=== PATIENT | female | born 2000 | race Hispanic/Latino ===

== ENCOUNTER 2021-12-09 17:56 | Emergency (ER) | payer OTHER ==
[2021-12-09 19:04] LABS: Urine Blood Negative (Negative); Urine Glucose Negative (Negative); Urine Protein Negative (Negative); Urine Specific Gravity 1.025 (1.005-1.030); Urine pH 6.5 (5.0-7.0)
[2021-12-09 19:19] LABS: Urine Specific Gravity/Preg 1.025 (1.005-1.030)
--- NOTE | 2021-12-09 19:50 | RAD REPORT ---
[facility] DES[facility] - [facility]09/2021 7:37 pm CLINICAL HISTORY: Flank pain, kidney stone suspected COMPARISON: <Comparisons> TECHNIQUE: CT of the abdomen and pelvis was performed. All CT scans are performed using dose optimization technique as appropriate and may include automated exposure control or mA/KV adjustment according to patient size. FINDINGS: Lower chest: No acute abnormality. Liver: No acute abnormality or suspicious lesions. Biliary: No biliary ductal dilatation. Stomach: No significant focal abnormality. Duodenum: No significant focal abnormality. Pancreas: No significant abnormality. Spleen: No significant abnormality. Adrenal: No suspicious lesions. Kidney/ureter: No hydronephrosis. No renal calculi. Retroperitoneum: No retroperitoneal adenopathy. Vascular: No aneurysm. Bowel: No significant focal abnormality. Normal appendix. Peritoneum: No ascites or free air. Bladder: Grossly unremarkable. Reproductive: No adnexal masses. Retroverted uterus. Bones: No acute fracture. Other: n/a IMPRESSION: No acute intra-abdominal or pelvic finding. No urinary tract calculi. Normal appendix.
[2021-12-09] MEDS ORDERED: MORPHINE 4 MG/ML SYR ONE (20:11)
[2021-12-09] MEDS ORDERED: NA CHLORIDE 0.9% 1,000 ML ONE (20:11)
[2021-12-09] MEDS ORDERED: ONDANSETRON 4 MG/2 ML VIAL ONE (20:11)
[2021-12-09 20:14] LABS: Absolute Lymphocytes (CBC) 2.8 K/uL (0.7-4.9); Hematocrit 41.9 % (36.0-45.0); Lymphocytes % 40.9 % (15.3-44.8); MCV 95.7 fL (80-100); MPV 8.6 fL (7.6-11.3); RBC Red Blood Cell Count 4.38 M/uL (3.86-4.86)
[2021-12-09 20:23] LABS: Albumin 3.5 g/dL (3.4-5.0); Bilirubin Total 0.3 mg/dL (0.2-1.0); Potassium 3.8 mmol/L (3.5-5.1); Protein, Total 7.2 g/dL (6.4-8.2)
[2021-12-09 21:40] LABS: Urine Bacteria <20 /HPF (<20); Urine RBC <5 /HPF (None Seen)
--- NOTE | 2021-12-09 22:14 | EDPHYS ---
Physician Documentation [facility] Name: Ling Bergman Age: 21 yrs Sex: Female : 2000 Arrival Date: 12/09/2021 Time: 18:31 Bed 14 Private MD: ED Physician Ezequiel Bergman HPI: 12/09 18:52 This 21 yrs old Female presents to ER via Ambulatory with complaints of pm1 Possible Kidney Stone. 18:52 The patient complains of pain in the left low back and right low back. The pain does pm1 not radiate. Onset: The symptoms/episode began/occurred yesterday. Modifying factors: The symptoms are alleviated by nothing. the symptoms are aggravated by movement. Associated signs and symptoms: Pertinent negatives: dizziness, dysuria, fever, headache, nausea, vomiting. Severity of pain: in the emergency department the pain is actually worse. The patient has experienced a previous episode, symptoms similar to prior UTI and possible kidney stone. The patient has not recently seen a physician. Historical: - Allergies: 18:33 PENICILLINS; ll1 - PMHx: 18:33 Kidney stone; ll1 - PSHx: 18:33 tympanoplasty; bunion removed; ll1 - Immunization history:: Client reports having NOT received the Covid vaccine. - Social history:: Smoking status: Patient denies any tobacco usage or history of. ROS: 18:52 Constitutional: Negative for fever, chills, and weight loss, Cardiovascular: Negative pm1 for chest pain, palpitations, and edema, Respiratory: Negative for shortness of breath, cough, wheezing, and pleuritic chest pain, Abdomen/GI: Negative for abdominal pain, nausea, vomiting, diarrhea, and constipation. 18:52 MS/Extremity: Negative for injury and deformity, Skin: Negative for injury, rash, and discoloration, Neuro: Negative for headache, weakness, numbness, tingling, and seizure. 18:52 Back: Positive for of the low back area. 18:52 All other systems are negative. Exam: 18:52 Constitutional: This is a well developed, well nourished patient who is awake, alert, pm1 and in no acute distress. Head/Face: Normocephalic, atraumatic. 18:52 Skin: Warm, dry with normal turgor. Normal color with no rashes, no lesions, and no evidence of cellulitis. MS/ Extremity: Pulses equal, no cyanosis. Neurovascular intact. Full, normal range of motion. 18:52 Cardiovascular: Exam negative for acute changes, Rate: normal, Rhythm: regular, Pulses: no pulse deficits are appreciated. 18:52 Respiratory: Exam negative for acute changes, respiratory distress, shortness of breath, Breath sounds: are clear throughout. 18:52 Abdomen/GI: Exam negative for acute changes, Inspection: abdomen appears normal, Palpation: abdomen is soft and non-tender, in all quadrants. 18:52 Back: pain, that is mild, of the right low back, CVA tenderness, is absent. 18:52 Neuro: Exam negative for acute changes, Orientation: is normal, Mentation: is normal, Motor: is normal, moves all fours. Vital Signs: 18:33 BP 120 / 78; Pulse 77; Resp 16; Temp 97.7; Pulse Ox 100% ; Weight 68.04 kg; Height 5 ll1 ft. 2 in. (157.48 cm); Pain 6/10; 20:19 BP 115 / 76; Pulse 80; Resp 16; Pulse Ox 99% ; jb4 21:30 BP 116 / 72; Pulse 71; Resp 16; Pulse Ox 100% on R/A; jb4 18:33 Body Mass Index 27.44 (68.04 kg, 157.48 cm) ll1 MDM: 19:14 Patient medically screened. pm1 22:12 Data reviewed: vital signs. Data interpreted: Pulse oximetry: on room air is 99 %. pm1 Interpretation: normal. Counseling: I had a detailed discussion with the patient and/or guardian regarding: the historical points, exam findings, and any diagnostic results supporting the discharge/admit diagnosis, lab results, radiology results, the need for outpatient follow up, to return to the emergency department if symptoms worsen or persist or if there are any questions or concerns that arise at home. 12/09 18:51 Order name: CBC with Diff; Complete Time: 20:21 pm1 12/09 18:51 Order name: CMP; Complete Time: 20:24 pm1 12/09 18:51 Order name: Lipase; Complete Time: 20:24 pm1 12/09 19:05 Order name: Urine Dipstick-Ancillary; Complete Time: 19:11 EDMS 12/09 19:05 Order name: Urine --Ancillary (enter results); Complete Time: 19:40 bd 12/09 20:24 Order name: Urine Microscopic Only; Complete Time: 21:44 pm1 12/09 18:51 Order name: IV Saline Lock; Complete Time: 19:57 pm1 12/09 18:51 Order name: Labs collected and sent; Complete Time: 19:57 pm1 12/09 18:51 Order name: Urine Dipstick-Ancillary (obtain specimen); Complete Time: 18:59 pm1 12/09 18:51 Order name: Urine Test (obtain specimen); Complete Time: 18:59 pm1 12/09 18:51 Order name: CT Stone Protocol; Complete Time: 19:58 pm1 Administered Medications: 20:03 Drug: Zofran (Ondansetron) 4 mg Route: IVP; Site: right antecubital; jb4 20:05 Drug: NS 0.9% 1000 ml Route: IV; Rate: 1 bolus; Site: right antecubital; jb4 20:05 Drug: morphine 4 mg Route: IVP; Infused Over: 4 mins; Site: right antecubital; jb4 Disposition: 12/10 21:47 Co-signature as Attending Physician, Ezequiel Bergman MD. rn Disposition Summary: 12/09/21 22:12 Discharge Ordered Location: Home pm1 Problem: new pm1 Symptoms: have improved pm1 Condition: Stable pm1 Diagnosis - Low back pain pm1 Followup: pm1 - With: Emergency Department - When: As needed - Reason: Worsening of condition Followup: pm1 - With: Private Physician - When: 2 - 3 days - Reason: Recheck today's complaints, Continuance of care, Re-evaluation by your physician Discharge Instructions: - Discharge Summary Sheet pm1 - Acute Back Pain, Adult pm1 - Musculoskeletal Pain pm1 Forms: - Medication Reconciliation Form pm1 - Thank You Letter pm1 - Antibiotic Education pm1 - Prescription Opioid Use pm1 Prescriptions: - Cyclobenzaprine 10 mg Oral Tablet - take 1 tablet by ORAL route every 8 hours As needed; 30 tablet; Refills: 0, pm1 Product Selection Permitted - Diclofenac Sodium 75 mg Oral tablet,delayed release (DR/EC) - take 1 tablet by ORAL route 2 times per day As needed; 30 tablet; Refills: 0, pm1 Product Selection Permitted Signatures: Dispatcher [employer] Ezequiel Ivory MD MD rn Marinas, Patrick, YEAST DISTILLER YEAST DISTILLER pm1 Jovanni Sandoval, RN RN jb4 Anshu Fleming RN RN ll1
--- NOTE | 2021-12-09 22:14 | ER ---
Nurse's Notes [facility] Name: Ling Bergman Age: 21 yrs Sex: Female : 2000 Arrival Date: 12/09/2021 Time: 18:31 Bed 14 Private MD: Diagnosis: Low back pain Presentation: 12/09 18:33 Chief complaint: Patient states: R flank pain since last night. Feels like her last ll1 kidney stone. No dysuria, low grade fever at home. Coronavirus screen: Vaccine status: Patient reports being unvaccinated. Client denies travel out of the [place] in the last 14 days. At this time, the client does not indicate any symptoms associated with coronavirus-19. Ebola Screen: Patient denies travel to an Ebola-affected area in the 21 days before illness onset. Initial Sepsis Screen: Does the patient meet any 2 criteria? No. Patient's initial sepsis screen is negative. Does the patient have a suspected source of infection? Yes: Dysuria/Frequency/Urgency/UTI. Risk Assessment: Do you want to hurt yourself or someone else? Patient reports no desire to harm self or others. Onset of symptoms was December 08, 2021. 18:33 Method Of Arrival: Ambulatory ll1 18:33 Acuity: JOSE L 3 ll1 Triage Assessment: 18:35 General: Appears uncomfortable, Behavior is calm, cooperative, appropriate for age. ll1 Pain: Complains of pain in R flank Quality of pain is described as aching. GI: Reports lower abdominal pain. : Reports pain in right flank(s). Historical: - Allergies: 18:33 PENICILLINS; ll1 - PMHx: 18:33 Kidney stone; ll1 - PSHx: 18:33 tympanoplasty; bunion removed; ll1 - Immunization history:: Client reports having NOT received the Covid vaccine. - Social history:: Smoking status: Patient denies any tobacco usage or history of. Screenin:45 Abuse screen: Denies threats or abuse. Nutritional screening: No deficits noted. jb4 Tuberculosis screening: No symptoms or risk factors identified. Fall Risk None identified. Assessment: 19:45 General: Appears in no apparent distress. comfortable, Behavior is calm, cooperative, jb4 appropriate for age. Pain: Complains of pain in right low back Pain radiates to right lower quadrant Pain currently is 5 out of 10 on a pain scale. at worst was 10 out of 10 on a pain scale. Quality of pain is described as dull, sharp. Neuro: Level of Consciousness is awake, alert, obeys commands, Oriented to person, place, time, situation. Cardiovascular: Patient's skin is warm and dry. Respiratory: Airway is patent Respiratory effort is even, unlabored, Respiratory pattern is regular, symmetrical. GI: Reports lower abdominal pain. Derm: Skin is intact, Skin is pink, warm \T\ dry. Musculoskeletal: Circulation, motion, and sensation intact. Range of motion: intact in all extremities. 21:00 Reassessment: Patient appears in no apparent distress at this time. Patient and/or jb4 family updated on plan of care and expected duration. Pain level reassessed. Patient is alert, oriented x 3, equal unlabored respirations, skin warm/dry/pink. 22:36 Reassessment: Patient appears in no apparent distress at this time. Patient and/or jb4 family updated on plan of care and expected duration. Pain level reassessed. Patient is alert, oriented x 3, equal unlabored respirations, skin warm/dry/pink. Patient states feeling better. Vital Signs: 18:33 BP 120 / 78; Pulse 77; Resp 16; Temp 97.7; Pulse Ox 100% ; Weight 68.04 kg; Height 5 ll1 ft. 2 in. (157.48 cm); Pain 6/10; 20:19 BP 115 / 76; Pulse 80; Resp 16; Pulse Ox 99% ; jb4 21:30 BP 116 / 72; Pulse 71; Resp 16; Pulse Ox 100% on R/A; jb4 18:33 Body Mass Index 27.44 (68.04 kg, 157.48 cm) ll1 ED Course: 18:31 Patient arrived in ED. ll1 18:33 Arm band placed on. ll1 18:34 Raffy Perez NP is PHCP. pm1 18:34 Ezequiel Bergman MD is Attending Physician. pm1 18:35 Triage completed. ll1 19:24 Jovanni Sandoval RN is Primary Nurse. jb4 19:39 CT Stone Protocol In Process Unspecified. EDMS 19:45 Patient has correct armband on for positive identification. Bed in low position. Call jb4 light in reach. Side rails up X 1. 19:54 Initial lab(s) drawn, by me, sent to lab. Inserted saline lock: 20 gauge in right jb4 antecubital area, using aseptic technique. Blood collected. 22:45 No provider procedures requiring assistance completed. IV discontinued, intact, jb4 bleeding controlled, No redness/swelling at site. Pressure dressing applied. Administered Medications: 20:03 Drug: Zofran (Ondansetron) 4 mg Route: IVP; Site: right antecubital; jb4 20:05 Drug: NS 0.9% 1000 ml Route: IV; Rate: 1 bolus; Site: right antecubital; jb4 20:05 Drug: morphine 4 mg Route: IVP; Infused Over: 4 mins; Site: right antecubital; jb4 Medication: 21:30 VIS not applicable for this client. jb4 Outcome: 22:12 Discharge ordered by . pm1 22:45 Discharged to home ambulatory, with family. jb4 22:45 Condition: stable 22:45 Discharge instructions given to patient, Instructed on discharge instructions, follow up and referral plans. no drinking with medication, no driving heavy equipment, medication usage, Demonstrated understanding of instructions, follow-up care, medications, Prescriptions given X 2. 22:45 Patient left the ED. jb4 Signatures: Dispatcher [employer] EDMS Raffy Perez, [employer] SAF[employer] INSPECTOR pm1 Jovanni Sandoval, CAROL RN jb4 Anshu Fleming RN RN ll1
[2021-12-10] MEDS ORDERED: LIDOCAINE 1% MPF 5 ML VIAL ONE (00:14)
[2021-12-10] MEDS ORDERED: TRIAMCINOLONE ACETON 40 MG/ML VIAL ONE (00:15)
[2021-12-10 02:51] VITALS: TEMP 97.7
[2021-12-10 02:56] VITALS: BP 116/72; O2SAT 100
== END 2021-12-09 22:45 | disposition home or self-care (01) ==
LOC: ER 17:56
DX: M54.50 Low back pain, unspecified (principal); Z87.442 Personal history of urinary calculi; Z88.0 Allergy status to penicillin
CPT/HCPCS: 85025; 36415; 81025; 83690; 80053; 76377; 74176; J7030; J2405; 81003; 81015; 96374; 96375; 99284